=== PATIENT | male | born 1965 | race Two or more races ===

== ENCOUNTER 2021-12-14 11:03 | Emergency (ER) | payer SELFPAY ==
[~2021-12-14] VITALS: Ht 162.6 cm; Wt 74.8 kg
[2021-12-14 13:10] LABS: BASOPHILS # (AUTO) 0.1 K/uL (0.0-0.2); BASOPHILS % (AUTO) 1.7 % (0.0-2.0); EOSINOPHILS % (AUTO) 0.9 % (0.0-6.0); HEMATOCRIT 32 % (39-51); HEMOGLOBIN 10.4 g/dL (13.5-17.5); LYMPHOCYTES # (AUTO) 4.4 K/uL (0.8-4.8); LYMPHOCYTES % (AUTO) 55.2 % (20.0-44.0); MEAN CORPUSCULAR HGB CONC 32 g/dl (31.0-36.0); MEAN CORPUSCULAR VOLUME 91 fL (80-96); MONOCYTES # (AUTO) 0.5 K/uL (0.1-1.30); NEUTROPHILS # (AUTO) 2.9 K/uL (1.8-8.9); NEUTROPHILS % (AUTO) 36.2 % (43.0-81.0); PLATELET COUNT (AUTO) 424 K/uL (150-450); RED BLOOD CELL COUNT(AUTO) 3.53 MIL/uL (4.5-6.0); WHITE BLOOD COUNT (AUTO) 7.9 K/uL (4.3-11.0)
[2021-12-14 14:07] LABS: ALBUMIN 3.2 g/dL (3.4-5.0); BILIRUBIN,TOTAL 0.3 mg/dL (0.2-1.0); CREATININE 0.9 mg/dL (0.6-1.3); POTASSIUM 3.5 mmol/L (3.5-5.1)
--- NOTE | 2021-12-14 15:16 | NUR ---
SS consult: SS Consult requested for possible homelessness and alcohol use. The pt. is a 55- year-old male patient who came in for alcohol use. Per EMR, the pt. was BIBRA after "he was found with difficulty arousing on public transportation". Upon SS consult, the pt. is Alert & Oriented x 3 and makes good eye contact. The pt. appears disheveled with depressed mood & affect. The pt. denies SI/HI and denies hallucinations. Pt.'s speech is slurred; pt. is missing teeth. LEORA explored pt.'s drug and alcohol use history and pt. stated he only drinks alcohol. Per pt. he drinks "anything" (whiskey, vodka, tequila, beer). SW used motivational interviewing and educated pt. regarding alcohol dependance. SW offered pt. referral to rehab and pt. refused. Per MD note, possible Fentanyl use. SW provide pt. with the following medication LEORA explored pt.'s living situation. Patient states he resides alone at home [[address] [facility] ]. LEORA explored pt.'s mental health Hx. Patient denies any mental health diagnosis. Per pt. he is ambulatory and independent with all his ADL's. LEORA explored pt.'s support system. Pt. states he has no support system as his and mother have . Plan: Pt. states he will return home [[address] [facility] ] when ready for discharge. LEORA provided pt. with TAP card and pt. accepted it. LEORA also provided pt. with the following addiction resources and pt. accepted them: ADDICTION RESOURCES For Drugs and Alcohol [facility] sober living Referrals For Rehabilitation once sober Address:[address] [place] [address] [facility] Rehabilitation Program [address] [place] [address] Detox/residential [facility] Substance Abuse Helpline ([facility]) Outpatient, residential treatment, recovery support for youth/adults [facility] www.[facility]ing.[employer] [facility] Teen programs for drug/alcohol education and support Zina Hagen [place]. Program for adults, sliding scale provides support and education [employer] www.Knowlent.org [place]; Detox/residential treatment programs; transition to sober living [facility] www.cri-help.org [place]; Outpatient and residential treatment programs; transition to sober living [facility] TEL: [phone] [facility] Yvon Duke; Outpatient education and supportive programs for teens and adults [facility] www.oasiswomensrecovery.org [place]; Residential treatment and work program for females only [facility] www.Sunible.Skycheckin [place]: Outpatient/residential treatment program for teens and young adults [facility]org [facility] Detox, inpatient, outpatient for adults and youth [facility], [facility]. [place]; Outpatient programs and referrals to community residential programs. Alcoholics Anonymous -SFV information and meeting and scheduleswww.aa-intergroup.org [place] https://al-anon.org/ Drums support groups for family of alcoholics. Marijuana Anonymous www.madistrict6.org -SFV listing of meetings Narcotics Anonymous www.na.org SOBER LIVING RESOURCES [facility] www.soberhousing.net A non-profit agency that provides resources to recovery and sober living homes throughout [facility] Men's Sober Living Homes: A Work in ProgressAman [facility] Rekha Hagen [place] [facility], [facility] Women's [facility]ber Living Homes: [facility] x [address] [place], [place] [facility] [place] [facility] Sober Living Homes: [facility] Counsel[facility]--Outpatient [facility] [address] [facility] [place] [address] (Specializes in in-depth psychotherapy for emotional distress: anxiety, depression, interpersonal conflicts, life transitions, childhood abuse) [facility] [address] [place] [address] (Assist with solving problem marital difficulties, separation & divorce, aging parents, & grief, chronic & terminal illness) [facility] [address] [place] [address] (Deal with loss & grief, anxiety, marital difficulties) Homebound/Mental Health Services [address], [address] [place] [address] (Provide in-home mental services to people who are incapable of leaving their homes) [facility] Senior Service/Resource Center [address] [place] [address] [facility] [address] [place] [address] Mental Health Services Nikole Husain [address] [place] [address] Services: Outpatient therapy for children, teens, young adults, adults, older adults, and families; Psychiatric services, medication support Psychiatric Outpatient Services [facility] Partial Hospitalization and Intensive Outpatient Program (Managed Care and [place] Only)[address] [facility] [phone] [facility] Partial Hospitalization and Outpatient Unwlsev[address] [facility]. [address] [place], [place] [phone] [facility] Mental Health Center [id number] [place], [place] [phone] [facility] Yvon [facility] Partial Hospitalization and Outpatient Msvvese[address]249 Shama Cueva, [phone] Crisis and Hotline Telephone Numbers 24-Hour service unless stated [place] Crisis Hotlines: [facility] Mental Health/Crisis Line........[phone] Suicide Prevention Center (24 Hours).......[phone] Suicide Prevention Crisis Center.......[phone] (24 Hours) Assaults Against Women Hotline.........676.898.3036 (24 Hours -- [facility]) [facility]...........[phone] (24 Hours) Child Abuse Hotline............[phone] [facility] (24 Hours)..........[phone] Alcoholics Anonymous (24 Hours)..........[phone] Cocaine Anonymous (24 Hours)............[phone] Narcotics Anonymous (24 Hours)..........[phone] Tena Garza [facility] [address], [place] [address]
[2021-12-14 15:27] VITALS: BP 137/66
== END 2021-12-14 15:28 | disposition home or self-care (01) ==
LOC: ER 11:37
DX: F10.129 Alcohol abuse with intoxication, unspecified (principal); Y90.8 Blood alcohol level of 240 mg/100 ml or more; F19.10 Other psychoactive substance abuse, uncomplicated
CPT/HCPCS: 36415; 80053-TC; 85025-TC; G0480